=== PATIENT | male | born 1980 ===

== ENCOUNTER 2019-08-03 01:23 | Emergency (ER) | payer BC ==
[2019-08-03] MEDS ORDERED: Ondansetron INJ* 2 MG/ML VIAL IV ONE (01:36)
--- NOTE | 2019-08-03 01:39 | ED ---
Complex/Multi-Sys Presentation - HPI Summary HPI Summary: Patient is a 38 y/o M presenting to [facility] with complaints of dehydration, N/V, chills and hot flashes. Sx onset in the evening of 08/02/19. He denies diarrhea , abdominal pain, and any pain in general. Patient has Hx of migraines. 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 Home medications and allergies are reviewed. - History Of Current Complaint Chief Complaint: EDNauseaVomitDiarrh Time Seen by Provider: 08/03/19 01:33 Hx Obtained From: Patient Onset/Duration: Lasting Hours, Still Present Timing: Constant, Hours Severity Currently: None - pain denied Location: Negative Aggravating Factor(s): nothing Alleviating Factor(s): nothing Associated Signs And Symptoms: Positive: Nausea, Vomiting, Other - positive - dehydration, hot flashes and chills. Negative: Diarrhea, Abdominal Pain - Allergies/Home Medications Allergies/Adverse Reactions: Allergies Allergy/AdvReac Type Severity Reaction Status Date / Time No Known Allergies Allergy Verified 08/03/19 01:27 PMH/Surg Hx/FS Hx/Imm Hx Sensory History: Denies: Hx Legally Blind, Hx Deafness Opthamlomology History: Denies: Hx Legally Blind EENT History: Denies: Hx Deafness Neurological History: Reports: Hx Migraine Infectious Disease History: No Infectious Disease History: Denies: Traveled Outside the [place] in Last 30 Days - Family History Known Family History: Negative: Seizure Disorder - Social History Alcohol Use: Rare Substance Use Type: Reports: None Smoking Status (MU): Never Smoked Tobacco Review of Systems Constitutional: Other - positive - dehydration, hot flashes Positive: Chills Positive: Vomiting, Nausea. Negative: Abdominal Pain, Diarrhea All Other Systems Reviewed And Are Negative: Yes Physical Exam - Summary Physical Exam Summary: Appearance: Well-appearing, Well-nourished, lying in bed comfortably Skin: Warm, dry, no obvious rash Eyes: sclera anicteric, no conjunctival pallor ENT: mucous membranes moist, pharynx appears normal Neck: Supple, nontender Respiratory: Clear to auscultation, no signs of respiratory distress Cardiovascular: Some tachycardia noted. Normal S1, S2. No murmurs. Normal distal pulses in tibial and radial bilaterally. Abdomen: Soft, nontender, normal active bowel sounds present Musculoskeletal: Normal, Strength/ROM Intact Neurological: A&Ox3, awake and alert, mentation is normal, speech is fluent and appropriate Psychiatric: affect is normal, does not appear anxious or depressed Triage Information Reviewed: Yes Vital Signs On Initial Exam: Initial Vitals Temp Pulse Resp BP Pulse Ox 99.7 F 128 16 90/58 98 08/03/19 01:24 08/03/19 01:24 08/03/19 01:24 08/03/19 01:24 08/03/19 01:24 Vital Signs Reviewed: Yes Procedures - Sedation Patient Received Moderate/Deep Sedation with Procedure: No Diagnostics - Vital Signs Vital Signs Temp Pulse Resp BP Pulse Ox 08/03/19 01:24 99.7 F 128 16 90/58 98 - Laboratory Lab Statement: Any lab studies that have been ordered have been reviewed, and results considered in the medical decision making process. Complex Multi-Symp Course/Dx Course Of Treatment: Patient is a 38 y/o M presenting to [facility] with complaints of dehydration, N/V, chills and hot flashes. Sx onset in the evening of . He denies diarrhea, abdominal pain, and any pain in general. Patient has Hx of migraines. 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 On physical exam, some tachycardia noted. Patient received fluids and Zofran 8 mg IV with improvement of Sx. He is discharged to home with PCP follow up and a prescription for Zofran. - Diagnoses Provider Diagnoses: Nausea and vomiting Discharge ED - Sign-Out/Discharge Documenting (check all that apply): Patient Departure - DISCHARGE - Discharge Plan Condition: Good Disposition: HOME Prescriptions: Ondansetron ODT TAB* [Zofran 4 MG Odt TAB*] 8 mg PO Q6H PRN #14 tab.odt PRN Reason: Nausea Patient Education Materials: Acute Nausea and Vomiting (ED) Referrals: [facility] [Outside] - 3 Days (if not better) - Billing Disposition and Condition Condition: GOOD Disposition: Home - Attestation Statements Document Initiated by Scribe: Yes Documenting Scribe: SELENE MCDANIEL Provider For Whom Scribe is Documenting (Include Credential): HAKEEM FERMIN MD Scribe Attestation: SELENE Tijerina, scribed for HAKEEM FERMIN MD on 08/04/19 at 0357. Scribe Documentation Reviewed: Yes Provider Attestation: The documentation as recorded by the scribe, SELENE MCDANIEL accurately reflects the service I personally performed and the decisions made by me, HAKEEM FERMIN MD Status of Scribe Document: Viewed
[2019-08-03] MEDS: NS 0.9% 1000 ML** 2,000 ML IV ONE ×2 (01:41→01:42)
[2019-08-03 04:16] VITALS: BP 100/47
== END 2019-08-03 04:15 | disposition home or self-care (01) ==
LOC: ED 01:23
DX: R11.2 Nausea with vomiting, unspecified (principal)
CPT/HCPCS: 96361; 96374; 99283; J2405